=== PATIENT | female | born 1935 | race Caucasian/White ===

== ENCOUNTER → 2022-01-21 10:44 | Outpatient (ROUT) | payer MEDICARE, SELFPAY | PROVIDERS: Visit Provider Specialist | DX: N39.0 Urinary tract infection, site not specified (principal) | CPT/HCPCS: 87077; 87086; 87186 ==

== ENCOUNTER → 2022-02-11 11:30 | Outpatient (CLI) | payer MEDICARE, OTHER, SELFPAY ==
[2022-02-11 12:38] LABS: Appearance Urine UA CLOUDY; Bilirubin Urine UA NEGATIVE (NEGATIVE); Color Urine UA YELLOW; Glucose Urine UA NEGATIVE (Negative); Ketones Urine UA NEGATIVE (NEGATIVE); Leukocyte Esterase Urine UA 3+ (NEGATIVE); Nitrite Urine UA POSITIVE (Negative); Occult Blood Urine UA 1+ (Negative); Protein Urine UA 2+ (Negative); Urobilinogen Urine UA 0.2 E.U./dL (0.2); pH Urine UA 6.5 (4.5-8.0)
[2022-02-11 12:47] LABS: Bacteria Urine Many (>30); RBC Urine 0-1/HPF (0-5/HPF); WBC Urine >100/HPF (0-5/HPF)
== END ==
PROVIDERS: PCP Family Medicine; Visit Provider Family Medicine
DX: N39.0 Urinary tract infection, site not specified (principal); Z93.6 Other artificial openings of urinary tract status
CPT/HCPCS: 81001; 87077; 87086; 87186

== ENCOUNTER → 2022-04-02 11:01 | Outpatient (CLI) | payer MEDICARE, OTHER, SELFPAY | PROVIDERS: PCP Family Medicine; Visit Provider Family Medicine | DX: N39.0 Urinary tract infection, site not specified (principal); R30.0 Dysuria | CPT/HCPCS: 87077; 87086; 87186 ==

== ENCOUNTER → 2022-10-15 14:10 | Outpatient (CLI) | payer MEDICARE, OTHER, SELFPAY ==
[2022-10-15 15:02] LABS: Add Manual Diff / Slide Review NO; Basophils Absolute Auto 100 /uL (0-100); Basophils Percent Auto 0.7 % (0-2); Eosinophils Absolute Auto 100 /uL (0-450); Eosinophils Percent Auto 1.6 % (2-4); Hematocrit 31.7 % (36-46); Hemoglobin 10.3 g/dL (12.0-16.0); Lymphocytes Absolute Auto 2200 /uL (1100-4500); Lymphocytes Percent Auto 31.5 % (25-40); Mean Corpuscular HGB Conc 32.4 % (30-36); Mean Corpuscular Hemoglobin 22.1 PG (26-34); Mean Corpuscular Volume 68.4 fL (80-100); Monocytes Absolute Auto 400 /uL (0-900); Monocytes Percent Auto 5.7 % (3-14); Neutrophils Absolute Auto 4300 /uL (1500-7000); Neutrophils Percent Auto 60.5 % (50-75); Platelet Count 381 X10^3/uL (150-400); Red Blood Cell Count 4.63 X10^6/uL (4.0-5.2); Red Cell Distribution Width 16.5 % (11.6-14.8); White Blood Cell Count 7.1 X10^3/uL (4.5-11.0)
[2022-10-15 15:21] LABS: Anisocytosis 1+; Microcytosis 2+; Ovalocytes 1+; Target Cells 1+; Tear Drop Cells 2+
[2022-10-15 15:35] LABS: Alanine Aminotransferase 18 IU/L (<35); Albumin 4.2 g/dL (3.5-5.0); Albumin Globulin Ratio 1.5 (1.0-2.8); Alkaline Phosphatase 78 U/L (38-126); Aspartate Aminotransferase 24 IU/L (14-36); BUN Creatinine Ratio 29.4 (6-22); Bilirubin Total 0.8 mg/dL (0.2-1.3); Blood Urea Nitrogen 20 mg/dL (7-17); Calcium 9.2 mg/dL (8.4-10.2); Carbon Dioxide 24 mmol/L (22-32); Chloride 104 mmol/L (98-107); Estimated Glomerular Filt Rate > 60 mL/min (>60); Globulin 2.8 g/dL (1.7-4.1); Glucose 103 mg/dL (80-110); HEMOLYSIS < 15 (0-50); Potassium 4.3 mmol/L (3.4-5.1); Sodium 136 mmol/L (137-145)
== END ==
PROVIDERS: PCP Family Medicine; Referring Provider Family Medicine; Visit Provider Family Medicine
DX: D64.9 Anemia, unspecified (principal); E78.49 Other hyperlipidemia; F41.9 Anxiety disorder, unspecified; I10 Essential (primary) hypertension; N28.9 Disorder of kidney and ureter, unspecified; Z01.810 Encounter for preprocedural cardiovascular examination; Z93.6 Other artificial openings of urinary tract status
CPT/HCPCS: 36415; 80053; 85025

== ENCOUNTER → 2023-10-21 11:00 | Outpatient (CLI) | payer MEDICARE, OTHER, SELFPAY ==
--- NOTE | 2023-10-21 11:02 | DI.US.S_ITS ---
PROCEDURE: US RENAL COMPLETE INDICATIONS: URETERAL STRICTURE/HYDRONEPHROSIS TECHNIQUE: Real-time scanning was performed of the kidneys and bladder, with image documentation. COMPARISON: None. FINDINGS: Kidneys: Kidneys are normal in size. Right kidney measures 8.4 cm long; left kidney measures 9.1 cm long. Right renal cortical thickness is 1.1 cm; left renal cortical thickness is 1.5 cm. Renal cortical echotexture is normal. No hydronephrosis or nephrolithiasis. No suspicious solid mass lesions. Simple right renal cyst measuring 1.2 cm. Bladder: Pre-void bladder volume is 85 mL. Post-void residual is 74 mL. Pre-void images demonstrate no intraluminal masses or stones. On pre-void images, neither ureteral jets are noted with color Doppler interrogation. (Of note, ureteral jets may not be detectable in up to 25% of cases due to insufficient differences in specific gravity between ureteral and bladder urine). Miscellaneous: No free pelvic fluid. IMPRESSION: No obstruction. Simple right renal cyst. Notable postvoid residual compared to prevoid volume. Dictated by: Hedy Blackwood M.D. on 10/21/2023 at 17:01 Approved by: Hedy Blackwood M.D. on 10/21/2023 at 17:02
== END ==
LOC: US 11:00
PROVIDERS: PCP Family Medicine; Referring Provider Urology; Visit Provider Urology
DX: N13.1 Hydronephrosis with ureteral stricture, not elsewhere classified (principal); N28.1 Cyst of kidney, acquired
CPT/HCPCS: 76770

== ENCOUNTER → 2023-11-09 12:38 | Outpatient (CLI) | payer MEDICARE, OTHER, SELFPAY ==
[2023-11-09 13:50] LABS: Add Manual Diff / Slide Review NO; Basophils Absolute Auto 0 /uL (0-100); Basophils Percent Auto 0.6 % (0-2); Eosinophils Absolute Auto 100 /uL (0-450); Hematocrit 32.7 % (36-46); Hemoglobin 10.5 g/dL (12.0-16.0); Lymphocytes Absolute Auto 1900 /uL (1100-4500); Lymphocytes Percent Auto 24.6 % (25-40); Mean Corpuscular HGB Conc 32.1 % (30-36); Mean Corpuscular Hemoglobin 22.2 PG (26-34); Mean Corpuscular Volume 69.2 fL (80-100); Monocytes Absolute Auto 500 /uL (0-900); Neutrophils Absolute Auto 5400 /uL (1500-7000); Neutrophils Percent Auto 67.8 % (50-75); Platelet Count 386 X10^3/uL (150-400); Red Blood Cell Count 4.72 X10^6/uL (4.0-5.2); Red Cell Distribution Width 16.3 % (11.6-14.8); White Blood Cell Count 7.9 X10^3/uL (4.5-11.0)
[2023-11-09 14:02] LABS: Blood Urea Nitrogen 18 mg/dL (7-17); Calcium 9.3 mg/dL (8.4-10.2); Carbon Dioxide 24 mmol/L (22-32); Chloride 101 mmol/L (98-107); Estimated Glomerular Filt Rate > 60 mL/min (>60); Glucose 111 mg/dL (80-110); HEMOLYSIS < 15 (0-50); Potassium 4.6 mmol/L (3.4-5.1); Sodium 134 mmol/L (137-145)
[2023-11-09 14:08] LABS: Anisocytosis 1+; Microcytosis 1+; Tear Drop Cells 1+
[2023-11-09 14:14] LABS: Ovalocytes 1+; Schistocytes 1+
== END ==
PROVIDERS: PCP Family Medicine; Referring Provider Family Medicine; Visit Provider Family Medicine
DX: D56.9 Thalassemia, unspecified (principal)
CPT/HCPCS: 36415; 80048; 85025

== ENCOUNTER → 2024-03-10 14:57 | Outpatient (CLI) | payer MEDICARE, OTHER, SELFPAY ==
--- NOTE | 2024-03-10 15:00 | DI.RAD.S_ITS ---
PROCEDURE: XR SOFT TISSUE NECK INDICATIONS: neck pain thomas R side x 1 week TECHNIQUE: 2 views of the neck were acquired. COMPARISON: None. FINDINGS: Airway: Pharyngeal region appears normal. There is leftward deviation of the trachea which could indicate a right paratracheal mass. Trachea caliber appears normal, however Soft tissues: Prevertebral soft tissues are normal in thickness. The epiglottis and aryepiglottic folds appear normal. No soft tissue gas. Bones: Moderate C3-4 C4-5 C5-6 and severe C6-7 degenerative disc disease noted. There is 5 mm of anterior C6 subluxation IMPRESSION: Leftward deviation of the trachea which could indicate a right paratracheal mass such as a large thyroid mass. Consider soft tissue neck CT Dictated by: Carlos Scott M.D. on 03/11/2024 at 12:17 Approved by: Carlos Scott M.D. on 03/11/2024 at 12:19
== END ==
PROVIDERS: PCP Family Medicine; Referring Provider Physician Assistant; Visit Provider Physician Assistant
DX: J39.8 Other specified diseases of upper respiratory tract (principal); M50.31 Other cervical disc degeneration, high cervical region; M54.2 Cervicalgia
CPT/HCPCS: 70360

== ENCOUNTER → 2024-03-14 09:34 | Outpatient (CLI) | payer MEDICARE, OTHER, SELFPAY ==
[2024-03-14 10:00] LABS: Estimated Glomerular Filt Rate > 60 mL/min (>60)
--- NOTE | 2024-03-14 11:30 | DI.CT.S_ITS ---
PROCEDURE: CT SOFT TISSUE NECK W CON INDICATIONS: tracheal deviation, r/o mass TECHNIQUE: After the administration of intravenous contrast, 3.0 mm axial sections acquired from the sella to the aortic arch. Additional oblique axial 3.0 mm sections acquired through the pharynx. 3 mm thick coronal and sagittal reformats were generated. For radiation dose reduction, the following was used: automated exposure control. COMPARISON: [facility], CR, XR SOFT TISSUE NECK, 03/10/2024, 15:09. FINDINGS: Image quality: Diagnostic Brain: Unremarkable Orbits: Unremarkable Mouth and pharynx: No discrete mass Airway: Trachea deviated toward the left Neck spaces: No pathologic lymph nodes by size criteria Glands: Enlarged right thyroid goiter, with a dominant nodule over 3.6 cm. Vessels: Retropharyngeal course of the right ICA. There are vascular calcifications. Upper chest: Unremarkable lung apices. Sinuses and mastoids: No dense paranasal sinus opacity Bones: Degenerative osseous changes. IMPRESSION: Leftward deviation of the upper trachea. This is secondary to a right thyroid goiter with dominant nodule over 3.5 cm. Ultrasound follow-up is suggested. Dictated by: Flavio Omalley M.D. on 03/14/2024 at 11:04 Approved by: Flavio Omalley M.D. on 03/14/2024 at 11:08
== END ==
LOC: CT 09:35
PROVIDERS: Radiology Diagnostic Radiology; PCP Family Medicine; Referring Provider Physician Assistant; Visit Provider Physician Assistant
DX: J39.8 Other specified diseases of upper respiratory tract (principal); E04.1 Nontoxic single thyroid nodule; R22.1 Localized swelling, mass and lump, neck
CPT/HCPCS: 36415; 70491; 82565; Q9967

== ENCOUNTER → 2024-03-15 15:12 | Outpatient (CLI) | payer MEDICARE, OTHER, SELFPAY ==
--- NOTE | 2024-03-15 15:14 | DI.US.S_ITS ---
PROCEDURE: US THYROID INDICATIONS: abmornal CT, thyroid nodule TECHNIQUE: Real-time scanning was performed of the thyroid gland, with image documentation. COMPARISON: [facility], CT, CT SOFT TISSUE NECK W INA, 03/14/2024, 10:27. FINDINGS: Thyroid: Right lobe measures 5.0 x 2.8 x 3.2 cm. Left lobe measures 4.2 x 1.5 x 1.3 cm. Isthmus is 0.2 cm thick. Echotexture is homogeneous. Nodule number: 1 Location: Right Size: 4.3 x 2.8 x 3.1 cm. Composition: Predominantly solid Echogenicity: Isoechoic Shape: wider than tall. Margins: Smooth Echogenic foci: None Total points: 3 ACR TI-RADS category: Mildly suspicious IMPRESSION: Mildly suspicious right thyroid lobe nodule. Recommend fine needle aspiration. ACR TI-RADS definitions and recommendations: TI-RADS 1 (benign): 0 points. FNA not needed. TI-RADS 2 (not suspicious): 2 points. FNA not needed. TI-RADS 3: 3 points. * FNA if 2.5 cm or larger, follow up if 1.5 cm or larger (at 1, 3, and 5 years). TI-RADS 4: 4-6 points. * FNA if 1.5 cm or larger, follow up if 1 cm or larger (at 1, 2, 3, and 5 years). TI-RADS 5: 7 points or more. * FNA if 1 cm or larger, follow up if 0.5 cm or larger (every year for 5 years). Dictated by: Fish Severino M.D. on 03/15/2024 at 16:06 Approved by: Fish Severino M.D. on 03/15/2024 at 16:15
== END ==
LOC: US 15:13
PROVIDERS: PCP Family Medicine; Referring Provider Physician Assistant; Visit Provider Physician Assistant
DX: R93.89 Abnormal findings on diagnostic imaging of other specified body structures (principal); E04.1 Nontoxic single thyroid nodule
CPT/HCPCS: 76536

== ENCOUNTER → 2024-03-28 14:38 | Outpatient (CLI) | payer MEDICARE, OTHER, SELFPAY ==
--- NOTE | 2024-03-28 | PATH_ITS ---
Note [facility] Accession Number: [id number] TESTS RESULT FLAG UNITS REF RANGE LAB Clinician Provided Cytology Information No. of containers..01 Other (Miscellaneous) No. of containers..00 Previously Prepared Cytology Slide Source: RIGHT THYROID NODULE DIAGNOSIS: RIGHT THYROID NODULE, FINE NEEDLE ASPIRATION. INCONCLUSIVE. BETHESDA CATEGORY III. ATYPIA OF UNDETERMINED SIGNIFICANCE, SEE COMMENT. COMMENT: EXAMINATION OF THE SMEARS REVEALS A MILDLY CELLULAR ASPIRATE, COMPOSED OF COLLOID AND BENIGN FOLLICULAR GROUPS WITH FOCAL HURTHLE CELL CHANGES. IN ADDITION, THERE ARE RARE GROUPS WHERE MILD NUCLEAR ENLARGEMENT AND OVERLAPPING ARE NOTED. INTRANUCLEAR PSEUDOINCLUSIONS ARE NOT SEEN. THE RISK OF MALIGNANCY IN THE BETHESDA CATEGORY III IS 5-15%. ADDITIONAL MOLECULAR TESTING WILL BE PERFORMED ON THE SUBMITTED RNA VIAL FOR FURTHER EVALUATION. Pathologist ICD10: R89.6, E04.1 Signed out by: Latrice Aviles MD, Pathologist NPI- [id number] Performed by: Amparo Tanner, Real Estate Operations Manager ([facility]) Gross description: 30 CC, RED, CLEAR RECIEVED: IN CYTOLYT WITH 5 ALCOHOL FIXED AND 5 QUICK STAINED SLIDES ALSO 1 RNA VIAL WILL ON 09-16-2024.VO /VDU 03/29/2024 0646 Local FLAG LEGEND: L-Low Normal,H-High Normal,LL-Alert Low,HH-Alert High <-Panic Low,>-Panic High,A-Abnormal,AA-Critical Abnormal Performed at: 01 =Z [facility] [facility], [place] [address] Damien Ash MD, Performed at: [address] [address], [place], [place] [id number] MD Damien Ash MD Phone: [phone]
--- NOTE | 2024-03-28 14:41 | DI.US.S_ITS ---
PROCEDURE: US FINE NEEDLE ASPIRATION INDICATIONS: RIGHT THYROID NODULE TECHNIQUE: The indications, alternatives, benefits, risks, and complications of the procedure were explained to the patient. Written informed consent was obtained and placed in the chart. The area of interest was examined sonographically and a site was chosen for ultrasound guided percutaneous sampling. The skin was prepared and draped in the usual fashion, and anesthetized with 1% lidocaine infiltrated from the skin down to the lesion. Multiple passes were then performed, with contents emptied into an appropriate pathology specimen container. A bandage was applied to the area of access at completion of the study. COMPARISON: None. FINDINGS: Location(s) of lesion(s) sampled: Dominant right thyroid Blanchard: 25 gauge hypodermic needles. Number of passes: 5 Medications: 1% lidocaine for local anaesthesia. Complications: None. IMPRESSION: Successful ultrasound-guided right thyroid nodule fine needle aspiration, with cytology results pending. Dictated by: Flavio Omalley M.D. on 03/28/2024 at 15:58 Approved by: Flavio Omalley M.D. on 03/28/2024 at 15:59
== END ==
PROVIDERS: PCP Family Medicine; Referring Provider Physician Assistant; Visit Provider Radiology Diagnostic Radiology
DX: E04.1 Nontoxic single thyroid nodule (principal)
CPT/HCPCS: 10005

== ENCOUNTER → 2024-04-04 13:17 | Outpatient (CLI) | payer MEDICARE, OTHER, SELFPAY ==
[2024-04-04 15:51] LABS: TSH w/ Reflex to FT4 2.76 uIU/mL (0.47-4.68)
[2024-04-06 07:09] LABS: Thyroid Peroxidase Antibodies 17 IU/mL (0-34)
== END ==
PROVIDERS: PCP Family Medicine; Referring Provider Family Medicine; Visit Provider Family Medicine
DX: E04.9 Nontoxic goiter, unspecified (principal)
CPT/HCPCS: 36415; 84443; 86376

== ENCOUNTER → 2024-06-21 15:28 | Outpatient (CLI) | payer MEDICARE, OTHER, SELFPAY ==
[2024-06-21 16:59] LABS: Add Manual Diff / Slide Review NO; Basophils Absolute Auto 0 /uL (0-100); Basophils Percent Auto 0.7 % (0-2); Eosinophils Absolute Auto 100 /uL (0-450); Eosinophils Percent Auto 1.6 % (2-4); Hematocrit 30.7 % (36-46); Hemoglobin 9.9 g/dL (12.0-16.0); Lymphocytes Absolute Auto 2100 /uL (1100-4500); Lymphocytes Percent Auto 32.7 % (25-40); Mean Corpuscular HGB Conc 32.4 % (30-36); Mean Corpuscular Hemoglobin 22.3 PG (26-34); Mean Corpuscular Volume 68.8 fL (80-100); Monocytes Absolute Auto 300 /uL (0-900); Monocytes Percent Auto 4.7 % (3-14); Neutrophils Absolute Auto 3800 /uL (1500-7000); Neutrophils Percent Auto 60.3 % (50-75); Platelet Count 380 X10^3/uL (150-400); Red Blood Cell Count 4.46 X10^6/uL (4.0-5.2); Red Cell Distribution Width 15.8 % (11.6-14.8); White Blood Cell Count 6.3 X10^3/uL (4.5-11.0)
[2024-06-21 17:22] LABS: Microcytosis 1+; Ovalocytes 1+; Schistocytes 1+
[2024-06-21 17:24] LABS: Alanine Aminotransferase 19 IU/L (<35); Albumin Globulin Ratio 1.5 (1.0-2.8); Alkaline Phosphatase 88 U/L (38-126); Aspartate Aminotransferase 26 IU/L (14-36); BUN Creatinine Ratio 34.7 (6-22); Bilirubin Total 0.6 mg/dL (0.2-1.3); Blood Urea Nitrogen 25 mg/dL (7-17); Calcium 9.1 mg/dL (8.4-10.2); Carbon Dioxide 24 mmol/L (22-32); Chloride 103 mmol/L (98-107); Estimated Glomerular Filt Rate > 60 mL/min (>60); Globulin 2.6 g/dL (1.7-4.1); Glucose 108 mg/dL (70-99); HEMOLYSIS < 15 (0-50); Potassium 4.3 mmol/L (3.4-5.1); Sodium 135 mmol/L (137-145); Total Protein 6.6 g/dL (6.3-8.2)
[2024-06-21 17:52] LABS: TSH w/ Reflex to FT4 2.52 uIU/mL (0.47-4.68)
[2024-06-21 18:12] LABS: Vitamin B12 985 pg/mL (239-931)
== END ==
LOC: LAB 15:30
PROVIDERS: Physician Assistant; PCP Family Medicine; Referring Provider Family Medicine; Visit Provider Physician Assistant
DX: E04.9 Nontoxic goiter, unspecified (principal); N13.30 Unspecified hydronephrosis; I10 Essential (primary) hypertension; R46.89 Other symptoms and signs involving appearance and behavior; R30.0 Dysuria
CPT/HCPCS: 36415; 80053; 82607; 84443; 85025; 87086

== ENCOUNTER → 2024-06-21 15:29 | Outpatient (CLI) | payer MEDICARE, OTHER, SELFPAY | LOC: LAB 15:30 | PROVIDERS: PCP Family Medicine; Visit Provider Physician Assistant | DX: R30.0 Dysuria (principal) | CPT/HCPCS: 87086 ==